=== PATIENT | male | born 1995 | race Caucasian/White ===

== ENCOUNTER 2019-10-05 23:14 | Emergency (ER) | payer OTHER, SELFPAY ==
[~2019-10-05] VITALS: Ht 167.6 cm; Wt 94.2 kg
[2019-10-05 23:14] VITALS: BP 125/82
[2019-10-06] MEDS ORDERED: BENZ200C70 PO (01:08)
== END 2019-10-06 01:51 | disposition home or self-care (01) ==
LOC: M ED 23:14
DX: J20.9 Acute bronchitis, unspecified (principal); Z88.8 Allergy status to other drugs, medicaments and biological substances

== ENCOUNTER 2021-06-18 16:17 | Emergency (ER) | payer OTHER ==
[~2021-06-18] VITALS: Ht 172.7 cm; Wt 92.4 kg
[2021-06-18 16:17] VITALS: BP 134/80
[~2021-06-18 16:17] MED LIST: BENZ200C70 PO
== END 2021-06-19 01:51 | disposition left against medical advice (07) ==
LOC: M ED 16:17
DX: Z53.21 Procedure and treatment not carried out due to patient leaving prior to being seen by health care provider (principal)